=== PATIENT | female | born 1975 | race Caucasian/White ===

== ENCOUNTER 2021-01-26 17:41 | Emergency (ER) | payer OTHER ==
[2021-01-26 17:46] VITALS: TEMP 98.2
[2021-01-26] MEDS ORDERED: KETOROLAC 15 MG/ML 1 ML VIAL IVP STA (18:37)
[2021-01-26] MEDS ORDERED: ONDANSETRON 4 MG/2 ML VIAL IVP STA (18:37)
[2021-01-26] MEDS ORDERED: SODIUM CHLORIDE 0.9% 1,000 ML IV STA (18:37)
--- NOTE | 2021-01-26 18:47 | ED ---
Abdominal Pain HPI - General Chief Complaint: Abdominal Pain Stated Complaint: abd pain Time Seen by Provider: 01/26/21 18:01 Source: patient, RN notes reviewed Mode of arrival: ambulatory Limitations: no limitations - History of Present Illness Initial Comments: 46-year-old female history of hysterectomy in the past who states she's had about 4 days of lower abdominal pain she states she is actually having some intermittent abdominal pain for the past month or so but for last 4 days she had burning epigastric pain the felt almost like heartburn Toward the umbilicus now for right lower quadrant 6/10 severity gets worse with movements and deep breathing had positive nausea some chills no other symptoms reported. No dysuria no hematuria she has been constipated MD Complaint: abdominal pain - Related Data Home Medications Medication Instructions Recorded Confirmed ALPRAZolam [Xanax] 0.25 mg PO TID 12/15/15 12/15/15 Albuterol Sulfate [Proair Hfa] 2 puff INHALATION RT-Q6H PRN 12/15/15 12/15/15 Citalopram Hydrobromide [CeleXA] 30 mg PO DAILY 12/15/15 12/15/15 Fluticasone/Salmeterol [Advair 1 puff INHALATION RT-BID 12/15/15 12/15/15 250-50 Diskus] Ibuprofen [Motrin] 600 mg PO Q8HR PRN 12/15/15 12/15/15 Previous Rx's Medication Instructions Recorded Hydrocodone/Acetaminophen [Leadore 1 each PO Q6HR PRN #20 tab 12/15/15 5-325] Dicyclomine [Bentyl] 10 mg PO TID #12 tab 01/26/21 Allergies Allergy/AdvReac Type Severity Reaction Status Date / Time No Known Allergies Allergy Unverified 01/26/21 17:46 Review of Systems ROS Statement: Those systems with pertinent positive or pertinent negative responses have been documented in the HPI. ROS Other: All systems not noted in ROS Statement are negative. Past Medical History Past Medical History: No Reported History History of Any Multi-Drug Resistant Organisms: None Reported Past Surgical History: Bladder Surgery, Hysterectomy Additional Past Surgical History / Comment(s): alexei Past Psychological History: Anxiety, Depression Past Alcohol Use History: Occasional Past Drug Use History: None Reported General Exam - General Exam Comments Initial Comments: This is a well-developed well-nourished awake alert oriented 3 female Limitations: no limitations General appearance: alert, anxious Head exam: Present: atraumatic, normocephalic, normal inspection Eye exam: Present: normal appearance, PERRL, EOMI. Absent: scleral icterus, conjunctival injection, periorbital swelling ENT exam: Present: normal exam, mucous membranes moist Neck exam: Present: normal inspection. Absent: tenderness, meningismus, lymphadenopathy Respiratory exam: Present: normal lung sounds bilaterally. Absent: respiratory distress, wheezes, rales, rhonchi, stridor Cardiovascular Exam: Present: regular rate, normal rhythm, normal heart sounds. Absent: systolic murmur, diastolic murmur, rubs, gallop, clicks GI/Abdominal exam: Present: soft, tenderness (Some tenderness palpation of the right lower quadrant no overt guarding or rebound also some equivocal psoas sign), normal bowel sounds. Absent: distended, guarding, rebound, rigid Rectal exam: Present: deferred Extremities exam: Present: normal inspection, full ROM, normal capillary refill. Absent: tenderness, pedal edema, joint swelling, calf tenderness Back exam: Present: normal inspection Neurological exam: Present: alert, oriented X3, CN II-XII intact Psychiatric exam: Present: normal affect, normal mood Skin exam: Present: warm, dry, intact, normal color. Absent: rash Course Vital Signs 01/26/21 17:43 Temperature 98.2 F Pulse Rate 90 Respiratory 16 Rate Blood Pressure 138/90 O2 Sat by Pulse 96 Oximetry Medical Decision Making - Medical Decision Making Patient is feeling improved I did discuss findings with her she does have a colonoscopy scheduled for February of this year. She is encouraged to follow through with that. She'll be discharged home with a prescription for Bentyl. She also increase oral fluids. - Lab Data Result diagrams: 01/26/21 18:40 01/26/21 18:40 Lab Results 01/26/21 01/26/21 01/26/21 Range/Units 18:40 18:40 18:40 WBC 7.0 (3.8-10.6) k/uL RBC 5.04 (3.80-5.40) m/uL Hgb 15.9 (11.4-16.0) gm/dL Hct 47.7 H (34.0-46.0) % MCV 94.8 (80.0-100.0) fL MCH 31.7 (25.0-35.0) pg MCHC 33.4 (31.0-37.0) g/dL RDW 11.6 (11.5-15.5) % Plt Count 226 (150-450) k/uL MPV 8.4 Neutrophils % 55 % Lymphocytes % 32 % Monocytes % 7 % Eosinophils % 4 % Basophils % 1 % Neutrophils # 3.8 (1.3-7.7) k/uL Lymphocytes # 2.2 (1.0-4.8) k/uL Monocytes # 0.5 (0-1.0) k/uL Eosinophils # 0.3 (0-0.7) k/uL Basophils # 0.0 (0-0.2) k/uL PT 10.0 (9.0-12.0) sec INR 0.9 (<1.2) APTT 23.3 (22.0-30.0) sec Sodium (137-145) mmol/L Potassium (3.5-5.1) mmol/L Chloride (98-107) mmol/L Carbon Dioxide (22-30) mmol/L Anion Gap mmol/L BUN (7-17) mg/dL Creatinine (0.52-1.04) mg/dL Est GFR (CKD-EPI)AfAm (>60 ml/min/1.73 sqM) Est GFR (CKD-EPI)NonAf (>60 ml/min/1.73 sqM) Glucose (74-99) mg/dL Plasma Lactic Acid Daniel (0.7-2.0) mmol/L Calcium (8.4-10.2) mg/dL Total Bilirubin (0.2-1.3) mg/dL AST (14-36) U/L ALT (4-34) U/L Alkaline Phosphatase (38-126) U/L Creatine Kinase (30-135) U/L Troponin I (0.000-0.034) ng/mL Total Protein (6.3-8.2) g/dL Albumin (3.5-5.0) g/dL Amylase (30-110) U/L Lipase (23-300) U/L Urine Color Colorless Urine Appearance Clear (Clear) Urine pH 6.5 (5.0-8.0) Ur Specific [place] 1.004 (1.001-1.035) Urine Protein Negative (Negative) Urine Glucose (UA) Negative (Negative) Urine Ketones Negative (Negative) Urine Blood Negative (Negative) Urine Nitrite Negative (Negative) Urine Bilirubin Negative (Negative) Urine Urobilinogen <2.0 (<2.0) mg/dL Ur Leukocyte Esterase Negative (Negative) 01/26/21 01/26/21 01/26/21 Range/Units 18:40 18:40 18:40 WBC (3.8-10.6) k/uL RBC (3.80-5.40) m/uL Hgb (11.4-16.0) gm/dL Hct (34.0-46.0) % MCV (80.0-100.0) fL MCH (25.0-35.0) pg MCHC (31.0-37.0) g/dL RDW (11.5-15.5) % Plt Count (150-450) k/uL MPV Neutrophils % % Lymphocytes % % Monocytes % % Eosinophils % % Basophils % % Neutrophils # (1.3-7.7) k/uL Lymphocytes # (1.0-4.8) k/uL Monocytes # (0-1.0) k/uL Eosinophils # (0-0.7) k/uL Basophils # (0-0.2) k/uL PT (9.0-12.0) sec INR (<1.2) APTT (22.0-30.0) sec Sodium 140 (137-145) mmol/L Potassium 3.9 (3.5-5.1) mmol/L Chloride 105 (98-107) mmol/L Carbon Dioxide 28 (22-30) mmol/L Anion Gap 7 mmol/L BUN 12 (7-17) mg/dL Creatinine 0.81 (0.52-1.04) mg/dL Est GFR (CKD-EPI)AfAm >90 (>60 ml/min/1.73 sqM) Est GFR (CKD-EPI)NonAf 87 (>60 ml/min/1.73 sqM) Glucose 57 L (74-99) mg/dL Plasma Lactic Acid Daniel 1.2 (0.7-2.0) mmol/L Calcium 10.0 (8.4-10.2) mg/dL Total Bilirubin 0.7 (0.2-1.3) mg/dL AST 46 H (14-36) U/L ALT 53 H (4-34) U/L Alkaline Phosphatase 120 (38-126) U/L Creatine Kinase 145 H (30-135) U/L Troponin I <0.012 (0.000-0.034) ng/mL Total Protein 7.8 (6.3-8.2) g/dL Albumin 4.5 (3.5-5.0) g/dL Amylase 67 (30-110) U/L Lipase 88 (23-300) U/L Urine Color Urine Appearance (Clear) Urine pH (5.0-8.0) Ur Specific [place] (1.001-1.035) Urine Protein (Negative) Urine Glucose (UA) (Negative) Urine Ketones (Negative) Urine Blood (Negative) Urine Nitrite (Negative) Urine Bilirubin (Negative) Urine Urobilinogen (<2.0) mg/dL Ur Leukocyte Esterase (Negative) - Radiology Data Radiology results: report reviewed (Imaging reviewed no evidence of acute findings no evidence of appendicitis. Complete report.), image reviewed Disposition Clinical Impression: Spastic colon, Abdominal pain Disposition: ADMITTED IP TO THIS HOSP Condition: Fair Prescriptions: Dicyclomine [Bentyl] 10 mg PO TID #12 tab Is patient prescribed a controlled substance at d/c from ED?: No Referrals: Patel Giron MD [Primary Care Provider] - 1-2 days
[2021-01-26 18:53] LABS: Basophils % (A) 1 %; Eosinophils # (A) 0.3 k/uL (0-0.7); Eosinophils % (A) 4 %; HCT 47.7 % (34.0-46.0); HGB 15.9 gm/dL (11.4-16.0); Lymphocytes # (A) 2.2 k/uL (1.0-4.8); Lymphocytes % (A) 32 %; MCH 31.7 pg (25.0-35.0); MCHC 33.4 g/dL (31.0-37.0); MCV 94.8 fL (80.0-100.0); Mean Platelet Volume 8.4; Monocytes # (A) 0.5 k/uL (0-1.0); Monocytes % (A) 7 %; Neutrophils # (A) 3.8 k/uL (1.3-7.7); Neutrophils % (A) 55 %; Platelet Count 226 k/uL (150-450); RBC 5.04 m/uL (3.80-5.40); RDW 11.6 % (11.5-15.5)
[2021-01-26 18:54] LABS: Appearance,Urine Clear (Clear); Bilirubin,Urine Negative (Negative); Blood,Urine Negative (Negative); Color,Urine Colorless; Glucose,Urine (UA) Negative (Negative); Ketones,Urine Negative (Negative); Leukocyte Esterase,Urine Negative (Negative); Nitrite,Urine Negative (Negative); PH, Urine 6.5 (5.0-8.0); Protein,Urine Negative (Negative); Specific Gravity,Urine 1.004 (1.001-1.035); Urobilinogen,Urine <2.0 mg/dL (<2.0)
[2021-01-26 19:04] LABS: ALT 53 U/L (4-34); AST 46 U/L (14-36); African American GFR (CKD) >90 (>60 ml/min/1.73 sqM); Albumin 4.5 g/dL (3.5-5.0); Alkaline Phosphatase 120 U/L (38-126); Amylase 67 U/L (30-110); Anion Gap 7 mmol/L; Blood Urea Nitrogen 12 mg/dL (7-17); Carbon Dioxide 28 mmol/L (22-30); Chloride 105 mmol/L (98-107); Creatine Kinase 145 U/L (30-135); Glucose 57 mg/dL (74-99); Lipase 88 U/L (23-300); Non-African American GFR(CKD) 87 (>60 ml/min/1.73 sqM); Potassium 3.9 mmol/L (3.5-5.1); Sodium 140 mmol/L (137-145); Total Bilirubin 0.7 mg/dL (0.2-1.3); Total Protein 7.8 g/dL (6.3-8.2)
[2021-01-26 19:07] LABS: INR 0.9 (<1.2)
[2021-01-26 19:08] LABS: Partial Thromboplastin Time 23.3 sec (22.0-30.0)
--- NOTE | 2021-01-26 19:36 | CT ---
EXAMINATION TYPE: CT abdomen pelvis w con DATE OF EXAM: 01/26/2021 COMPARISON: 12/15/2015 HISTORY: Right lower quadrant pain x [address] DLP: 1817.6 mGycm Automated exposure control for dose reduction was used. CONTRAST: Performed with IV Contrast, patient injected with 100 mL of Isovue 300. Lung bases are clear. There is no pleural effusion. Heart size is normal. There is no pericardial eff usion. Liver spleen stomach pancreas gallbladder appear normal. Bile ducts are not dilated. There is no adrenal mass. Kidneys show satisfactory contrast opacification. There is no hydronephrosi s. Ureters are not dilated. There is no retroperitoneal adenopathy. Bladder distends smoothly. There is no inguinal hernia. There is no free fluid in the pelvis. Appendix appears normal. There is no mes enteric edema. There is no ascites or free air. There is no bowel obstruction. There is no evidence o f a pelvic mass. There is hysterectomy. Lumbar vertebra have fairly normal alignment. There is no compression fracture. There is metal artifa ct from surgery at the right sacroiliac joint. The hip joints are intact. Pelvic ring is intact. IMPRESSION: Negative CT scan of the abdomen and pelvis. Normal appendix.
[2021-01-26 21:10] VITALS: BP 116/72; PULSE 76; RESP 18
== END 2021-01-26 21:27 | disposition other institution (70) ==
LOC: EC 17:41
DX: K58.9 Irritable bowel syndrome, unspecified (principal); F41.9 Anxiety disorder, unspecified; F32.9 Major depressive disorder, single episode, unspecified; Z90.710 Acquired absence of both cervix and uterus
CPT/HCPCS: 99285; 96374; 96375; 96361 ×2; 36415; 80053; 82150; 82550; 83605; 83690; 84484; 85025; 85610; 85730; 81003; 87040; 74177; J2405; J1885; Q9967

== ENCOUNTER 2021-03-02 08:48 | Day surgery (SDC) | payer OTHER ==
[2021-03-01 09:45] VITALS: BMI 38.3
[~2021-03-02 08:48] MED LIST: LACTATED RINGERS 1,000 ML IV SCH
[2021-03-02 09:18] VITALS: TEMP 97.3
[2021-03-02] MEDS ORDERED: LACTATED RINGERS 1,000 ML IV ONE (09:19)
[2021-03-02] MEDS ORDERED: PROPOFOL 10 MG/ML 20 ML VIAL IV ONE (09:33)
--- NOTE | 2021-03-02 09:58 | P.PCN ---
Date of Procedure: 03/02/21 Procedure(s) Performed: Brief history: Patient is a pleasant 46-year-old white female scheduled for an elective upper endoscopy as well as colonoscopy as a part of evaluation of GERD/change in bowel habits Procedure performed: Esophagogastroduodenoscopy biopsy Colonoscopy Preoperative diagnosis: GERD change in bowel habits Anesthesia: MAC Procedure: After informed consent was obtained from the patient was brought into the endoscopy unit and IV sedation was administered by anesthesia under continuous monitoring. Initially upper endoscopy was done. The Olympus GF 160 video endoscope was inserted inserted into the mouth and esophagus intubated without any difficulty and was gradually advanced into the stomach and duodenum and carefully examined. The bulb and second part of the duodenum appeared normal. The scope was then withdrawn into the stomach adequately insufflated with air and upon careful examination the antrum had mild gastritis and biopsies were done from this area. Small gastric polyps noted in the body the stomach which were biopsied. The rest of the body, cardia and fundus appeared normal. The scope was then withdrawn into the esophagus. The GE junction was located at 40 cm to the incisors. It appeared regular with some thickened distal esophageal folds and linear erosions consistent with LA grade B reflux esophagitis. Biopsies were done from mid and distal esophagus to rule out eosinophilic esophagitis.. Rest of the esophagus appeared normal. Patient tolerated the procedure well. At this time the patient continued to remain sedation. Initial digital rectal examination was normal. Olympus CF 160 video colonoscope was then inserted into the rectum and gradually advanced to the cecum without any difficulty. Careful examination was performed as the scope was gradually being withdrawn. The prep was excellent. The cecum, ascending colon, transverse colon, descending colon, sigmoid colon and rectum appeared normal. Retroflexion was performed in the rectum and no lesions were noted. Patient tolerated the procedure well. Impression: 1.Upper endoscopy revealed mild antral gastritis, small gastric polyps and thickened distal esophageal folds linear erosions consistent with LA grade B reflux esophagitis 2.Colonoscopy was within normal limits with no evidence of colitis or colorectal neoplasia Recommendations: Findings of this examination were discussed with the patient as well Richardson family. She was advised to follow with the biopsy results. She will continue with [id number] omeprazole 20 mg daily and follow antireflux measures. She was advised to have a repeat screening colonoscopy in 10 years.
[2021-03-02 10:02] VITALS: RESP 16
[2021-03-02 10:17] VITALS: BP 122/76; PULSE 77
== END 2021-03-02 10:35 | disposition home or self-care (01) ==
LOC: ORWHC2ENDO 08:48
PROVIDERS: ATTEND Internal Medicine Gastroenterology
DX: R19.4 Change in bowel habit (principal); K21.00 Gastro-esophageal reflux disease with esophagitis, without bleeding; K29.50 Unspecified chronic gastritis without bleeding; K31.7 Polyp of stomach and duodenum; Z79.899 Other long term (current) drug therapy; J45.909 Unspecified asthma, uncomplicated; M19.90 Unspecified osteoarthritis, unspecified site
CPT/HCPCS: 88305; 45378; 43239; J2704

== ENCOUNTER → 2021-09-26 | Outpatient (CLI) | payer OTHER ==
--- NOTE | 2021-09-26 17:52 | MR ---
EXAMINATION TYPE: MR knee RT wo con DATE OF EXAM: 09/26/2021 COMPARISON: None available HISTORY: right knee pain and swelling for 6 months TECHNIQUE: Multiplanar, multisequence imaging of the right knee is performed without IV contrast. FINDINGS: MEDIAL MENISCUS: Mild fraying of the anterior horn without discrete tear. Posterior horn is intact. LATERAL MENISCUS: Anterior and posterior horns are intact without tear. CRUCIATE LIGAMENTS: The anterior and posterior cruciate ligaments are intact and unremarkable. COLLATERAL LIGAMENTS: There is mild to moderate thickening of the proximal medial collateral ligament with increased intrasubstance signal without tear, compatible with grade 1/2 sprain. Lateral collate ral ligament complex is grossly intact and unremarkable. EXTENSOR MECHANISM: Visualized quadriceps and patellar tendons are intact. EFFUSION: Small suprapatellar joint effusion. POPLITEAL CYST: Trace popliteal/kirkland cyst. TRICOMPARTMENT SPACES: Mild to moderate thinning of the patellofemoral compartment. The medial and la teral compartments are grossly intact. CARTILAGE: Associated small partial thickness chondral defects within the patellar region and medial facet. BONE MARROW SIGNAL: No focal abnormal marrow signal is appreciated. OTHER: Mild prepatellar and medial knee soft tissue edema. IMPRESSION: No discrete meniscal tear. Grade 1/2 MCL sprain. 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
== END | disposition home or self-care (01) ==
LOC: RADMRIMAIN 16:37
PROVIDERS: ATTEND Orthopaedic Surgery Sports Medicine
DX: M17.11 Unilateral primary osteoarthritis, right knee (principal); M94.261 Chondromalacia, right knee

== ENCOUNTER → 2023-06-09 | Outpatient (CLI) | payer BC ==
[2023-06-09 12:00] LABS: Basophils # (A) 0.04 X 10*3/uL (0.00-0.10); Basophils % (A) 0.6 %; Eosinophils # (A) 0.25 X 10*3/uL (0.04-0.35); Eosinophils % (A) 3.8 %; HGB 14.3 g/dL (12.0-15.0); Lymphocytes # (A) 2.49 X 10*3/uL (0.90-5.00); Lymphocytes % (A) 37.6 %; MCH 30.6 pg (27.0-32.0); MCHC 33.3 g/dL (32.0-37.0); MCV 91.9 FL (80.0-97.0); Mean Platelet Volume 11.1 FL (9.5-12.2); Monocytes # (A) 0.49 X 10*3/uL (0.20-1.00); Monocytes % (A) 7.4 %; NRBC Per 100 WBC 0 X 10*3/uL (0.00-0.01); Neutrophils # (A) 3.33 X 10*3/uL (1.80-7.70); Neutrophils % (A) 50.3 %; Platelet Count 251 X 10*3/uL (140-440); RBC 4.68 X 10*6/uL (4.10-5.20); RDW 11.9 % (11.5-14.5); WBC 6.62 X 10*3/uL (4.50-10.00)
[2023-06-09 12:16] LABS: ALT 21 U/L (8-44); AST 23 U/L (13-35); Albumin 4.2 g/dL (3.8-4.9); Albumin/Globulin Ratio 1.62 Ratio (1.60-3.17); Alkaline Phosphatase 113 U/L (41-126); BUN/Creat Ratio 18.56 Ratio (12.00-20.00); Blood Urea Nitrogen 16.7 mg/dL (9.0-27.0); Calcium 9.7 mg/dL (8.7-10.3); Carbon Dioxide 24.8 mmol/L (21.6-31.8); Chloride 106 mmol/L (96-109); Ferritin 99.4 ng/mL (10.0-291.0); Globulin 2.6 g/dL (1.6-3.3); Glucose 91 mg/dL (70-110); Iron 156 UG/DL (50-170); Potassium 4.1 mmol/L (3.5-5.5); Sodium 142 mmol/L (135-145); Total Bilirubin 0.5 mg/dL (0.3-1.2); Total Iron Binding Capacity 323 UG/DL (228-460); Total Protein 6.8 g/dL (6.2-8.2)
== END | disposition home or self-care (01) ==
LOC: LABWHC1 07:54
PROVIDERS: ATTEND Internal Medicine Gastroenterology
DX: E83.110 Hereditary hemochromatosis (principal); R74.01 Elevation of levels of liver transaminase levels
CPT/HCPCS: 36415; 80053; 82728; 83540; 83550; 85025